=== PATIENT | male | born 1980 | race Caucasian/White ===

== ENCOUNTER 2024-03-01 15:10 | Outpatient (CLI) | payer OTHER, SELFPAY ==
[2024-03-01 15:24] LABS: Basophils Absolute Auto 0.1 K/mm3 (0.0-0.1); Basophils Percent Auto 0.5 % (0.2-1.2); Eosinophils Absolute Auto 0.2 K/mm3 (0-0.3); Eosinophils Percent Auto 2.1 % (0-4.4); Hematocrit 49.5 % (42.0-52.0); Hemoglobin 16.9 g/dL (14.0-18.0); Immature Granulocyte Absolute 0.27 K/mm3 (0.00-0.031); Immature Granulocyte Percent A 2.3 % (0-0.5); Lymphocytes Absolute Auto 1.59 K/mm3 (0.9-3.2); Lymphocytes Percent Auto 13.6 % (18.3-44.2); Mean Corpuscular HGB Conc 34.1 g/dl (32-36); Mean Corpuscular Hemoglobin 34.3 pg (26-34); Mean Corpuscular Volume 100.6 fl (80-100); Mean Platelet Volume 9.3 fl (7.4-10.4); Monocytes Percent Auto 8.9 % (2.6-8.5); Neutrophils Absolute Auto 8.5 K/mm3 (1.3-6.7); Neutrophils Percent Auto 72.6 % (45.5-73.1); Platelet Count Result 230 k/mm3 (150-375); Red Blood Count 4.92 M/mm3 (4.6-6.20); Red Cell Distribution Width 14.1 % (11.5-14.5); White Blood Count 11.7 K/mm3 (4.5-10.0)
[2024-03-01 16:37] LABS: Alanine Aminotransferase 135 U/L (6-50); Albumin Level 4.5 g/dL (3.5-5.1); Alkaline Phosphatase 69 U/L (38-126); Anion Gap 12 mmol/L (4-12); Aspartate Amino Transferase 46 U/L (17-59); Bilirubin,Total 0.7 mg/dL (0.2-1.3); Blood Urea Nitrogen 38 mg/dL (9-20); Calcium 9.1 mg/dL (8.4-10.2); Carbon Dioxide 25 mmol/L (22-30); Chloride 99 mmol/L (98-107); Estimated Glomerular Filt Rate 55; Glucose 78 mg/dL (65-110); Sodium 136 mmol/L (137-145)
[2024-03-01 17:56] LABS: Iron 190 ug/dL (49-181)
[2024-03-01 18:08] LABS: Percent Iron Saturation 69 % (20-50)
== END 2024-03-01 15:11 | disposition home or self-care (01) ==
LOC: ANHLAB 15:13
PROVIDERS: Nurse Practitioner Family; PCP Internal Medicine; Visit Provider Internal Medicine Hematology & Oncology
DX: E83.110 Hereditary hemochromatosis (principal); D75.1 Secondary polycythemia
CPT/HCPCS: 36415; 80053; 82728; 83540; 83550; 85025

== ENCOUNTER 2024-03-22 09:07 | Outpatient (CLI) | payer OTHER, SELFPAY ==
--- NOTE | ~2024-03-22 | US_ITS ---
Limited Abdominal Sonogram: Real-time sonographic imaging of the right upper quadrant was performed. Clinical History: Abnormal serum enzyme levels Findings: The liver appears normal with no evidence of mass lesion or bile duct dilatation. Main por seth vein demonstrates normal direction of flow. The gallbladder is well distended, and appears normal with no evidence of gallstone or wall thickening. The common bile duct measures 3 mm. The visualize d pancreas, aorta, and IVC are unremarkable. Impression: No significant abnormality seen. Reviewed, dictated and finalized at location M. Impression: No significant abnormality seen.
== END 2024-03-22 09:08 | disposition home or self-care (01) ==
LOC: ANHIMG 09:10
PROVIDERS: PCP Internal Medicine; Visit Provider Internal Medicine
DX: R74.8 Abnormal levels of other serum enzymes (principal); E83.110 Hereditary hemochromatosis
CPT/HCPCS: 76705

== ENCOUNTER 2024-04-20 05:56 | Day surgery (SDC) | payer OTHER, SELFPAY ==
[2024-02-10 10:31] VITALS: BMI 29.0
[2024-04-04 15:01] VITALS: BMI 30.7
[2024-04-20 06:20] VITALS: BP 118/60; PULSE 65; RESP 18; TEMP 36.8; O2SAT 100
[2024-04-20] MEDS: LACTATED RINGERS 1,000 ML 150 ML IV CONT (06:34)
[2024-04-20 06:40] VITALS: BMI 31.5
--- NOTE | 2024-04-20 06:55 | WPDANESEPPF ---
Anes - Initial Pre Proc Eval Procedure: Operation Date: 04/20/24 07:30 Proposed Procedures p Screening Colonoscopy - Abhijeet Montanez MD <Stanislav Heath DO - Last Filed: 04/25/24 13:35> Date/Time: 04/20/24 06:55 <Stanislav Heath DO - Last Filed: 04/25/24 13:35> Surgeon: Abhijeet Montanez MD <Stanislav Heath DO - Last Filed: 04/25/24 13:35> Pre Op Diagnosis: Neoplasm Screening <Stanislav Heath DO - Last Filed: 04/25/24 13:35> Patient Data Age: 44 Gender: M Height: 1.8 m Weight: 102.6 kg <Stanislav Heath DO - Last Filed: 04/25/24 13:35> Last Vital Signs Temp 36.8 C 04/20/24 06:20 Pulse 65 04/20/24 06:20 Resp 18 04/20/24 06:20 BP 118/60 04/20/24 06:20 Pulse Ox 100 04/20/24 06:20 O2 Del Method Room Air 04/20/24 06:20 <Stanislav Heath DO - Last Filed: 04/25/24 13:35> Allergies Allergy/AdvReac Type Severity Reaction Status Date / Time No Known Allergies Allergy Mild Verified 04/20/24 06:33 <Stanislav Heath DO - Last Filed: 04/25/24 13:35> Home Medications Medication Instructions Recorded Confirmed Type testosterone cypionate 200 mg/mL 160 mg (0.8 mL) IM WEEKLY Through 02/01/24 04/20/24 Rx intramuscular oil Victory #1 mL (Depo-Testosterone) sodium,potassium,mag sulfates 17.5 See Rx Instructions PO .COMPLEX 02/10/24 03/27/24 Rx gram-3.13 gram-1.6 gram oral soln #354 mL (Suprep Bowel Prep Kit) <Stanislav Heath DO - Last Filed: 04/25/24 13:35> Patient hx anesthesia problems: none <Nehemiah Conklin SINK MAKER - Last Filed: 04/20/24 07:12> Family hx anesthesia problems: none <Nehemiah Conklin CRNA - Last Filed: 04/20/24 07:12> Results Review: All pre-operative results and documents have been reviewed as part of the pre-operative evaluation. <Stanislav Heath DO - Last Filed: 04/25/24 13:35> [facility] Past Medical History Medical History: Medical History Hereditary hemochromatosis Hereditary hemoglobinopathy Seasonal allergies <Stanislav Heath DO - Last Filed: 04/25/24 13:35> Family History Family History: Family History Mother Cerebrovascular accident <Stanislav Heath DO - Last Filed: 04/25/24 13:35> Social History Social History: Social History Smoking status: Never smoker Second hand tobacco smoke exposure: No Alcohol intake: never Substance use: never Substance use type: does not use Do You Feel Safe in your Home?: Yes Lack of Transportation: No Lack of Food: Never True Current Housing: I Have Housing Concerned About Future Housing: No Difficulty Paying Gas/Electric Bills: No Difficulty Paying for Meds: No Currently Unemployed: No Education: Associate Degree Difficulty w/ Childcare or Family Care: No Living arrangements: with family Occupation/Education: occupation Gender identity (if verbalized by the patient): Male Sexual Orientation (if Verbalized by the Patient): Straight or Heterosexual Spiritual care concerns: No Agree to blood products: Yes <Stanislav Heath DO - Last Filed: 04/25/24 13:35> Anes - Eval Final PreProcedure Day of Procedure 04/20/24 06:55 <Stanislav Heath DO - Last Filed: 04/25/24 13:35> Patient weight: obese <Stanislav Heath DO - Last Filed: 04/25/24 13:35> Heart: regular rate and rhythm <Stanislav Heath DO - Last Filed: 04/25/24 13:35> Lungs: clear to auscultation <Stanislav Heath DO - Last Filed: 04/25/24 13:35> Airway: Mallampati scale class II <Stanislav Heath DO - Last Filed: 04/25/24 13:35> Neurological: alert and oriented <Stanislav Heath DO - Last Filed: 04/25/24 13:35> Last oral intake:
--- NOTE | 2024-04-20 06:56 | PM.HPGS ---
History of Present Illness History of Present Illness Consent: Risks, benefits, and alternatives have been discussed and questions answered. Patient agrees to proceed with procedure. Chief complaint: Neoplasm Screening Narrative: Ruben Enciso is a 44 year old male presents for screening colonoscopy. Patient reports his current weight appetite and bowel movements are normal. Patient denies abdominal pain. Has had no bleeding. Family history is noncontributory. Review of Systems Review of Systems: All systems reviewed & are unremarkable except as noted in HPI and below PMFSH Past Medical History Medical History (Updated 02/03/24 @ 15:09 by Stevie Gee DO) Hereditary hemochromatosis Hereditary hemoglobinopathy Seasonal allergies Family History Family History (Updated 02/01/24 @ 08:32 by Kim House [facility]) Mother Cerebrovascular accident Social History Social History (Updated 02/01/24 @ 08:34 by Kim House [facility]) Smoking status: Never smoker Second hand tobacco smoke exposure: No Alcohol intake: never Substance use: never Substance use type: does not use Do You Feel Safe in your Home?: Yes Lack of Transportation: No Lack of Food: Never True Current Housing: I Have Housing Concerned About Future Housing: No Difficulty Paying Gas/Electric Bills: No Difficulty Paying for Meds: No Currently Unemployed: No Education: Associate Degree Difficulty w/ Childcare or Family Care: No Living arrangements: with family Occupation/Education: occupation Gender identity (if verbalized by the patient): Male Sexual Orientation (if Verbalized by the Patient): Straight or Heterosexual Spiritual care concerns: No Agree to blood products: Yes Meds Home Medications and Allergies Home Medications Medication Instructions Recorded Confirmed Type testosterone cypionate 200 mg/mL 160 mg (0.8 mL) IM WEEKLY Through 02/01/24 04/20/24 Rx intramuscular oil Victory #1 mL (Depo-Testosterone) sodium,potassium,mag sulfates 17.5 See Rx Instructions PO .COMPLEX 02/10/24 03/27/24 Rx gram-3.13 gram-1.6 gram oral soln #354 mL (Suprep Bowel Prep Kit) Allergies Allergy/AdvReac Type Severity Reaction Status Date / Time No Known Allergies Allergy Mild Verified 04/20/24 06:33 Vital Signs Vital Signs - 24 hr 04/20/24 06:20 Temperature 98.3 F Pulse Rate 65 Respiratory Rate 18 Blood Pressure 118/60 Pulse Oximetry 100 Oxygen Delivery Room Air Exam Narrative: Physical exam reveals patient to be alert. Vital signs stable. HEENT exam is unremarkable. Patient is anicteric. Lungs are clear to auscultation and to percussion. heart Is without murmur or extra sounds. Abdomen bowel sounds are present soft nontender with no organomegaly. Digital external rectal exam is normal. Assessment and Plan Assessment and plan (1) Colon cancer screening: Code(s): Z12.11 - Encounter for screening for malignant neoplasm of colon Status: Acute Assessment and Plan: The patient presents today for neoplasia screening. Further recommendations may be given after endoscopy.
[2024-04-20 07:34] VITALS: BP 119/67; PULSE 67; RESP 16; O2SAT 99
[2024-04-20 07:44] VITALS: BP 121/77; PULSE 64; RESP 16; O2SAT 96
[2024-04-20 07:54] VITALS: BP 118/70; PULSE 65; RESP 18; O2SAT 98
--- NOTE | 2024-04-20 08:25 | WPDANESPN ---
Anes - Prog Note Post-Op Date/Time: 04/20/24 08:25 Cardiovascular status: normal Respiratory status: normal Airway patency: baseline Mental status: baseline Post-Op hydration status: normal Vital Signs: Last Vital Signs Temp 36.8 C 04/20/24 06:20 Pulse 65 04/20/24 07:54 Resp 18 04/20/24 07:54 BP 118/70 04/20/24 07:54 Pulse Ox 98 04/20/24 07:54 O2 Del Method Room Air 04/20/24 07:54 Pain Score (VAS): 0 I/O: Intake & Output 04/19/24 04/20/24 04/20/24 23:59 07:59 15:59 Intake Total 500 Balance 500 Post-procedural complaints: none Patient Feedback: Patient satisfied with anesthetic care.
== END 2024-04-20 08:00 | disposition home or self-care (01) ==
PROVIDERS: PCP Internal Medicine; Visit Provider Internal Medicine Gastroenterology
PROC: 0DJD8ZZ Inspection of Lower Intestinal Tract, Via Natural or Artificial Opening Endoscopic (ICD-10-PCS; CPT 45378; principal; 2024-04-20 07:30)
DX: Z12.11 Encounter for screening for malignant neoplasm of colon (principal); K64.8 Other hemorrhoids
CPT/HCPCS: 45378